=== PATIENT | female | born 2000 | race Caucasian/White ===

== ENCOUNTER 2018-11-06 01:10 | Inpatient (IN) | payer OTHER ==
[~2018-11-06] VITALS: Ht 162.6 cm; Wt 65.5 kg
[2018-11-06 01:45] VITALS: BP 106/61; PULSE 116; RESP 18
[2018-11-06] MEDS ORDERED: PREN-19 PO (01:48)
[2018-11-06] MEDS ORDERED: FERR134T PO (01:48)
[2018-11-06] MEDS ORDERED: LACTATED RINGER'S 1,000 ML IV PRN (04:26)
[2018-11-06] MEDS ORDERED: IBUPROFEN 600 MG TAB PO PRN (04:30)
[2018-11-06] MEDS ORDERED: LIDOCAINE 1% (MPF) 30 ML INJ INJ PRN (04:30)
[2018-11-06] MEDS ORDERED: CARBOPROST 250 MCG INJ IM PRN (04:30)
[2018-11-06] MEDS ORDERED: METHYLERGONOVINE 0.2 MG INJ IM PRN (04:30)
[2018-11-06] MEDS ORDERED: OXYTOCIN 30 UNITS/LR 500 ML IV SCH ×2 (04:30)
[2018-11-06] MEDS ORDERED: OXYTOCIN 30 UNITS/LR 500 ML IV PRN (04:30)
[2018-11-06] MEDS ORDERED: MISOPROSTOL 200 MCG TAB PR PRN (04:30)
[2018-11-06] MEDS ORDERED: BUTORPHANOL 2 MG INJ IV PRN ×2 (04:30)
--- NOTE | 2018-11-06 04:39 | HP ---
Date/Time of Note Date/Time of Note DATE: 11/06/18 TIME: 04:35 OB - History Hx of Present Chief Complaint: vaginal discharge Estimated Due Date: November 05, 2018 : 1 Para: 0 Care: Good Care Past Family/Social History * Past Medical, Surgical, Family and Obstetric Histories reviewed from chart. OB Admission Exam Vital Signs Vital Signs Vital Signs Date Temp Pulse Resp B/P (MAP) Pulse Ox O2 O2 Flow FiO2 Time Delivery Rate 11/06/18 98.0 116 18 106/61 Room Air 01:45 (76) Physical Exam Heart: Rhythm Normal Abdomen: WNL Extremities: Normal Cervical Dilatation: 3cm Effacement: 75% Station: 0 Membranes: Intact Heart Rate: 140's Accelerations: Accelerations Present Contractions on Admission: >10 Minutes Apart OB Assessment/Plan Reason for admission: other (early labor, decrase heart tones variability on initil evaluation IUP 40 07/05) Induction Method: per Pitocin Protocol Other plan: augmentation with pitocin, epidural per patient request CELIA FERRARO MD November 06, 2018 04:39
--- NOTE | 2018-11-06 04:56 | TRIAGE ---
OB Triage Datetime Report Generated by CPN: 11/06/2018 04:55 Datetime: 11/06/2018 02:33 Stage of : OB Triage Datetime: 11/06/2018 02:11 Stage of : OB Triage Labor Evaluation Frequency: 3-10 Monitor Mode: External Quality: Moderate Pattern: Normal: <= 5 Contractions in 10 Minutes Resting Tone Watchtower: Relaxed Heart Rate FHR Baseline Rate: 125 Monitor Mode: External US FHR Baseline Changes: No Baseline Change Variability: Moderate 6-25 bpm Accelerations: 15X15 Decelerations: Late Category: Category II Vaginal Exam Dilatation (cms): 3.0 Effacement (%): 70 Station: -2 Exam By: Sedrick Bolden Amniotic Fluid Amount: Scant Amniotic Fluid Odor: None Vaginal Bleeding: None Cervix, Consistency: Soft Cervix, Position: Posterior Presentation 'A': Cephalic Datetime: 11/06/2018 01:23 Time of Arrival: 11/06/2018 01:00 EGA: 40.1 Arrived By: Ambulatory Arrived From: Home Chief Complaint: c/o irreg ucs, watery discharge, and pressure Movement: Present Contractions: Irregular Time Contractions Began: 11/05/2018 14:00 Contractions: Q5-10 Rupture of Membranes: Denies Vaginal Bleeding: None Vaginal Discharge: Present Recent Sexual Intercouse: Denies Abdominal Trauma: Not Applicable Patient Complaints: Contractions Time Provider Notified: 11/06/2018 02:33 Provider Notified: Dr Ivan Initial Plan: EFM,SVE Datetime: 11/06/2018 01:16 Stage of : OB Triage Maternal Assessment Level of Consciousness: Fully Conscious DTR's/Clonus: DTRs 2+ Headache: Generalized Blurred Vision: No Respiratory Effort: Unlabored Nausea/Vomiting: Denies RUQ Epigastric Pain: Denies Facial Edema: None Monitor Mode: External Resting Tone Watchtower: Relaxed Heart Rate FHR Baseline Rate: 130 Monitor Mode: External US Pain Assessment Pain Scale: 4 Pain Presence: Intermittent Pain Type: Contraction Pain Location: Abdomen
[2018-11-06] MEDS: LACTATED RINGER'S 1,000 ML IV SCH ×4 (05:41→20:59)
--- NOTE | 2018-11-06 17:16 | PREAC ---
Date/Time of Note Date/Time of Note DATE: 11/06/18 TIME: 17:15 Anesthesia Eval and Record Evaluation Time Pre-Procedure Interview DATE: 11/06/18 TIME: 17:15 Age 18 Sex female NPO: 8 hrs Preoperative diagnosis IUP Planned procedure L&D Epidural Past Medical History Past Medical History: Includes GI: Morbid obesity Surgery & Anesthesia Issues No known issue Meds Anticoagulation: No Beta La within 24 hr: No Reason Beta La not given: Pt. not on B-La Reported Medications Vit #76/Iron,Carb/FA (Prenatabs Rx Tablet) 1 Each Tablet, 1 EACH PO DAILY, TAB 11/06/18 Ferrous Sulfate (Iron) 134 Mg Tablet, 134 MG PO DAILY, TAB 11/06/18 Current Medications Lactated Ringer's 1,000 ml @ 125 mls/hr Q8H IV Last administered on 11/06/18at 13:14; Admin Dose 125 MLS/HR; Start 11/06/18 at 04:26 Butorphanol Tartrate (Stadol) 1 mg Q2H PRN IV .PAIN SCALE 1-5; Start 11/06/18 at 04:30 Butorphanol Tartrate (Stadol) 2 mg Q2H PRN IV .PAIN SCALE 6-10; Start 11/06/18 at 04:30 Lidocaine (Xylocaine 1% (Mpf)) 30 ml ONCE PRN INJ .EPISIOTOMY; Start 11/06/18 at 04:30 Oxytocin/Lactated Ringer's 500 ml @ 500 mls/hr ONCE POST IV ; Start 11/06/18 at 04:30 Oxytocin/Lactated Ringer's 500 ml @ 125 mls/hr POST IV ; Start 11/06/18 at 04:30 Ibuprofen (Motrin) 600 mg ONCE PRN PO .PAIN 1-5; Start 11/06/18 at 04:30 Lactated Ringer's 1,000 ml @ 2,000 mls/hr Q30M PRN IV .ANESTHESIA; Start 11/06/18 at 04:26 Oxytocin/Lactated Ringer's 500 ml @ 0 mls/hr ONCE PRN IV .VAGINAL BLEEDING; Start 11/06/18 at 04:30 Methylergonovine Maleate (Methergine) 0.2 mg ONCE PRN IM .VAGINAL BLEEDING; Start 11/06/18 at 04:30 Carboprost Tromethamine (Hemabate) 250 mcg ONCE PRN IM .VAGINAL BLEEDING; Start 11/06/18 at 04:30 Misoprostol (Cytotec) 1,000 mcg ONCE PRN MS .VAGINAL BLEEDING; Start 11/06/18 at 04:30 Oxytocin/Lactated Ringer's 500 ml @ 0 mls/hr FOR AUGMENTATION IV Last administered on 11/06/18at 08:09; Admin Dose 1 MLS/HR; Start 11/06/18 at 04:30 Meds reviewed: Yes Allergies Coded Allergies: No Known Allergy (Unverified , 11/06/18) Allergies Reviewed: Yes Labs/Studies Labs Reviewed: Reviewed by anesthesiologist Result Diagram: 11/06/18 0515 Laboratory Tests 11/06/18 05:15 Blood Bank Test 11/06/18 05:15 Antibody Screen NEGATIVE Blood Type O POSITIVE Rh Immune Globulin Candidate NO test: Positive Studies: ECG Pre-procedure Exam Last vitals Vital Signs Date Temp Pulse Resp B/P (MAP) Pulse Ox O2 O2 Flow FiO2 Time Delivery Rate 11/06/18 98.0 116 18 106/61 Room Air 01:45 (76) Airway: Adequate mouth opening, Adequate thyromental dist Mallampati: Mallampati II Teeth: Normal Lung: Normal Heart: Normal ASA Physical Status ASA physical status: 2 Emergency: None Planned Anesthetic Neuraxial: Epidural Planned Pain Management Epidural, Parenteral pain med Pre-operative Attestations Prior to commencing anesthesia and surgery, the patient was re-evaluated, there was verification of: *The patient's identity *The results of appropriate recent lab work and preoperative vital signs *The above evaluation not changing prior to induction *Anesthetic plan, risk benefits, alternative and complications discussed with patient/family; questions answered; patient/family understands, accepts and wishes to proceed. HUMZA CULP MD November 06, 2018 17:16
[2018-11-06] MEDS ORDERED: ONDANSETRON 4 MG INJ IV PRN (17:30)
[2018-11-06] MEDS ORDERED: DIPHENHYDRAMINE 50 MG INJ IV PRN (17:30)
[2018-11-06] MEDS ORDERED: NALOXONE (0.4 MG/ML) INJ IV PRN (17:30)
[2018-11-06] MEDS ORDERED: FENTAnyl 2MCG/ML-ROPIV 0.2% 100 ML BAG EPI SCH (17:30)
[2018-11-06] MEDS ORDERED: ONDANSETRON 4 MG INJ IV ONE (23:14)
[2018-11-06] MEDS ORDERED: AMPICILLIN 2 GM/NS (PMX) 100 ML ONE (23:22)
[2018-11-06] MEDS ORDERED: AMPICILLIN 2 GM/NS (PMX) 100 ML IVPB SCH (23:30)
[2018-11-06] MEDS ORDERED: CLINDAMYCIN 900 MG/D5W (PMX) 50 ML IVPB ONE (23:43)
[2018-11-07] MEDS ORDERED: CLINDAMYCIN 900 MG/D5W (PMX) 50 ML IVPB SCH
[2018-11-07] MEDS ORDERED: GENTAMICIN 80 MG/NS (PMX) 50 ML IVPB SCH (00:30)
[2018-11-07] MEDS: ACETAMINOPHEN 500 MG TAB PO PRN ×2 (00:36→09:12)
[2018-11-07] MEDS ORDERED: PHENYLephrine 10 MG INJ ONE (01:53)
[2018-11-07] MEDS ORDERED: MISOPROSTOL 200 MCG TAB ONE (02:20)
[2018-11-07] MEDS ORDERED: FENTAnyl 50 MCG/ML VIAL ONE (02:21)
[2018-11-07] MEDS ORDERED: METOCLOPRAMIDE 10 MG INJ ONE (02:41)
[2018-11-07] MEDS ORDERED: MIDAZOLAM 1 MG/ML 2 ML INJ ONE (02:43)
[2018-11-07] MEDS ORDERED: morphine SULFATE/PF (10 MG/10 ML) INJ ONE (03:11)
[2018-11-07] MEDS ORDERED: OXYTOCIN 30 UNITS/LR 500 ML IV SCH (03:15)
[2018-11-07] MEDS ORDERED: LACTATED RINGER'S 1,000 ML IV SCH (03:15)
--- NOTE | 2018-11-07 03:23 | OPPN ---
Date/Time of Note Date/Time of Note DATE: 11/07/18 TIME: 03:20 Operative Report Planned Procedure Procedure date November 07, 2018 Procedure(s) Primary low transverse Performed by see signature line Thread Milling Machine Set Up Operator: COLEEN JERNIGAN MD 2nd Thread Milling Machine Set Up Operator none Pre-procedure diagnosis 1. distress 2. Chorioamnionitis 3. Suspected macrosomia [id number] Anesthesia Type: [id number] epidural Post-Procedure Post-procedure diagnosis 1. distress 2. Chorioamnionitis 3. Suspected macrosomia Findings Live Baby [boy], Apgars [9] and [9], weight [3735 g/8 pounds 4 ounces], [vertex] presentation EBL 800 cc IV fluids 1500 cc Urine output 325 cc Patient received Cytotec 1000 mcg per rectum and Methergine IM x1 dose in the OR Estimated Blood Loss: other (800) Specimen(s) Placenta Grafts/Implant(s) none Complication(s) none ELADIO BENITEZ MD November 07, 2018 03:23
--- NOTE | 2018-11-07 03:25 | PAC ---
Date/Time of Note Date/Time of Note DATE: 11/07/18 TIME: 03:24 Post-Anesthesia Notes Post-Anesthesia Note Last documented vital signs Vital Signs Date Temp Pulse Resp B/P (MAP) Pulse Ox O2 O2 Flow FiO2 Time Delivery Rate 11/07/18 101.7 00:36 11/06/18 116 18 106/61 Room Air 01:45 (76) Activity: WNL Respiratory function: WNL Cardiovascular function: WNL Mental status: Baseline Pain reasonably controlled: Yes Hydration appropriate: Yes Nausea/Vomiting absent: Yes Comments BP:122/56, P:78, Spo2:100%, T:99.8 HUMZA CULP MD November 07, 2018 03:25
[2018-11-07] MEDS ORDERED: LANOLIN HPA 1 PKT TOP PRN (03:30)
[2018-11-07] MEDS ORDERED: MAGNESIUM HYDROXIDE 30ML CUP PO PRN (03:30)
[2018-11-07] MEDS ORDERED: ACETAMINOPHEN 325 MG TAB PO PRN (03:30)
[2018-11-07] MEDS ORDERED: ONDANSETRON 4 MG INJ IV PRN ×2 (03:30)
[2018-11-07] MEDS ORDERED: SENNA/DOCUSATE NA (8.6MG/50MG) TAB PO PRN (03:30)
[2018-11-07] MEDS ORDERED: BISACODYL 10 MG SUPP PR PRN (03:30)
[2018-11-07] MEDS ORDERED: NALOXONE (0.4 MG/ML) INJ IV PRN (03:30)
[2018-11-07] MEDS ORDERED: CARBOPROST 250 MCG INJ IM PRN (03:30)
[2018-11-07] MEDS ORDERED: OXYTOCIN 30 UNITS/LR 500 ML IV PRN (03:30)
[2018-11-07] MEDS ORDERED: CEFAZOLIN 1 GM/50 ML (PMX) 50 ML IVPB SCH (03:30)
[2018-11-07] MEDS ORDERED: IBUPROFEN 600 MG TAB PO PRN (03:30)
[2018-11-07] MEDS ORDERED: MISOPROSTOL 200 MCG TAB PR PRN (03:30)
[2018-11-07] MEDS ORDERED: METHYLERGONOVINE 0.2 MG INJ IM PRN (03:30)
[2018-11-07] MEDS ORDERED: DIPHENHYDRAMINE 50 MG INJ IV PRN (03:30)
[2018-11-07] MEDS ORDERED: morphine 2 MG INJ IV PRN (03:30)
[2018-11-07] MEDS ORDERED: ACETAMINOPHEN 1000MG/100ML IV 100 ML IVPB ONE (04:30)
[2018-11-07] MEDS: KETOROLAC 30 MG INJ IV PRN ×3 (05:15→20:38)
[2018-11-07] MEDS: OXYTOCIN 30 UNITS/LR 500 ML IV SCH ×2 (05:52→23:35)
[2018-11-07] MEDS ORDERED: PIPER-TAZO 3.375 GM IV (PMX) 100 ML IVPB SCH (06:00)
[2018-11-07 06:20] VITALS: BP 108/53; PULSE 94; RESP 20
[2018-11-07 06:50] VITALS: BP 103/56; PULSE 83; RESP 18
[2018-11-07] MEDS ORDERED: OXYTOCIN 30 UNITS/LR 500 ML BAG IV ONE (07:00)
[2018-11-07] MEDS ORDERED: LIDOCAINE 1.5%/EPI MPF (SDV) 30 ML VIAL ONE (07:00)
[2018-11-07 08:00] VITALS: BP 102/59; PULSE 82; RESP 18
--- NOTE | 2018-11-07 11:03 | OPR ---
Operative Report Planned Procedure Procedure date November 07, 2018 Procedure(s) Primary low transverse section Performed by see signature line Wound/Ostomy Nurse: COLEEN JERNIGAN MD Pre-procedure diagnosis 1. distress 2. Chorioamnionitis 3. Suspected macrosomia [id number] Anesthesia Type: [id number] epidural Post-Procedure Post-procedure diagnosis 1. distress 2. Chorioamnionitis 3. Suspected macrosomia Findings Live Baby [boy], Apgars [9] and [9], weight [3735 g/8 pounds 4 ounces], [vertex] presentation EBL 800 cc IV fluids 1500 cc Urine output 325 cc Patient received Cytotec 1000 mcg per rectum and Methergine IM x1 dose in the OR Estimated Blood Loss: other (800) Specimen(s) Placenta Grafts/Implant(s) none Complication(s) none Pt Condition post procedure: stable Disposition: PACU Procedure Description Patient was taken to the operating room after adequate amount of anesthesia was given patient was prepped and draped in normal sterile fashion Low transverse Pfannenstiel skin incision was made. Incision was carried through to the underlying layer of fascia using Bovie Fascia was incised in the midline and incision was extended bilaterally using Bovie Both anterior and posterior edge of the fascia were from underlying layer of rectus muscles Rectus muscles were in the midline and peritoneum was identified and entered sharply without any difficulty Peritoneum was extended bilaterally manually. An Reji retractor was placed A bladder flap was created. Then a low transverse uterine incision was made on the uterus Fetus was delivered from vertex presentation and after 30 seconds delayed cord clamping the fetus was handed immediately to the waiting ICU team Placenta was delivered manually intact. Uterus was cleared off of all clots and debris Uterine incision was closed with 1 Vicryl suture in both running locked and a second layer imbricating fashion Multiple irrigations were performed and excellent hemostasis was noted. Both adnexa appeared normal Surgicel was placed on the incision line. Reji retractor was removed Peritoneal closure proceeded with 2-0 Vicryl in a running fashion. Rectus muscles were reapproximated with 2-0 Vicryl Fascia was closed with 0 Vicryl suture in 2 separate segments in a running fashion Subcutaneous layer was closed with 0- plain suture in a continuous fashion Skin was closed with end-sorb anuj and Dermabond glue All sponge, lap, needle counts were reported to be correct Patient tolerated the procedure well and taken back to recovery room in a stable condition ELADIO BENITEZ MD November 07, 2018 11:03
[2018-11-07] MEDS: PIPER-TAZO 3.375 GM IV (PMX) 100 ML IVPB SCH ×2 (11:54→17:41)
[2018-11-07 11:58] VITALS: BP 115/68; PULSE 79; RESP 18
[2018-11-07 16:24] VITALS: BP 94/59; PULSE 69; RESP 18
[2018-11-07 20:00] VITALS: BP 91/40; PULSE 74; RESP 18
[2018-11-08] VITALS: BP 97/46; PULSE 76; RESP 20
[2018-11-08] MEDS ORDERED: OXYCODONE/ACETAMINOPHEN (5/325) TAB PO PRN (01:35)
[2018-11-08 04:00] VITALS: BP 111/56; PULSE 84; RESP 18
[2018-11-08] MEDS: OXYCODONE/ACETAMINOPHEN (5/325) TAB PO PRN ×3 (04:31→21:41)
[2018-11-08] MEDS: PIPER-TAZO 3.375 GM IV (PMX) 100 ML IVPB SCH ×4 (07:22→17:45)
[2018-11-08 08:00] VITALS: BP 100/55; PULSE 87; RESP 18
[2018-11-08] MEDS: IBUPROFEN 600 MG TAB PO PRN (10:32)
[2018-11-08] MEDS: FERROUS SULFATE (EC) 325 MG TAB PO SCH ×2 (12:36→21:41)
[2018-11-08 16:00] VITALS: BP 98/52; PULSE 86; RESP 18
--- NOTE | 2018-11-08 16:17 | QN ---
Documentation Comment Postop day #1 Status post primary Patient stable and afebrile Vital signs stable VS - Last 72 Hours, by Label Date Temp Pulse Resp B/P (MAP) Pulse Ox O2 O2 Flow FiO2 Time Delivery Rate 11/08/18 98.5 87 18 100/55 Room Air 08:00 (70) 11/08/18 99.0 84 18 111/56 Room Air 04:00 (74) 11/08/18 98.4 76 20 97/46 (63) 96 Room Air 00:00 11/07/18 98.3 74 18 91/40 (57) 97 Room Air 20:00 11/07/18 98.5 69 18 94/59 (71) Room Air 16:24 11/07/18 98.5 79 18 115/68 99 Room Air 11:58 (84) 11/07/18 98.5 09:57 11/07/18 100.3 09:12 11/07/18 100.1 82 18 102/59 Room Air 08:00 (73) 11/07/18 102.0 83 18 103/56 96 Room Air 06:50 (72) 11/07/18 102.2 94 20 108/53 96 Room Air 06:20 (71) 11/07/18 103.3 04:34 11/07/18 101.7 00:36 11/06/18 98.0 116 18 106/61 Room Air 01:45 (76) Hematology - 72 Hrs Test 11/06/18 05:15 11/08/18 07:09 Hematocrit 26.8 % (37.0-47.0) L 20.3 % (37.0-47.0) #L Hemoglobin 8.4 g/dl (12.0-16.0) L 6.3 g/dl (12.0-16.0) Mean Corpuscular 21.2 pg (29.0-33.0) L 20.7 pg (29.0-33.0) L Hemoglobin Mean Corpuscular 31.3 g/dl (32.0-37.0) L 31.0 g/dl (32.0-37.0) L Hemoglobin Concent Mean Corpuscular Volume 67.5 fl (72.0-104.0) L 66.6 fl (72.0-104.0) L Mean Platelet Volume 10.8 fl (7.4-10.4) H 11.2 fl (7.4-10.4) H Platelet Count 253 10^3/UL (140-415) 226 10^3/UL (140-415) Red Blood Count 3.97 10^6/ul (4.20-5.40) 3.05 10^6/ul (4.20-5.40) L #L Red Cell Distribution 16.1 % (11.5-14.5) H 16.9 % (11.5-14.5) H Width White Blood Count 10.1 10^3/ul (4.8-10.8) 23.8 10^3/ul (4.8-10.8) #H Monocytes # (Manual) 0.4 10^3/ul (0.3-0.9) Chemistry Test 11/08/18 07:09 Sodium Level 134 mmol/L (135-144) L Potassium Level 3.8 mmol/L (3.5-5.1) Chloride Level 106 mmol/L (97-110) Carbon Dioxide Level 25 mmol/L (21-31) Anion Gap 3 (5-13) L Blood Urea Nitrogen 8 mg/dl (7-20) Creatinine 0.58 mg/dl (0.44-1.00) Est Glomerular Filtrat Rate mL/min > 60 mL/min (>60) Glucose Level 109 mg/dl (70-220) Calcium Level 8.3 mg/dl (8.4-10.2) L Total Bilirubin 0.3 mg/dl (0.2-1.3) Direct Bilirubin 0.00 mg/dl (0.00-0.20) Indirect Bilirubin 0.3 mg/dl (0-1.1) Aspartate Amino Transf (AST/SGOT) 194 IU/L (15-46) H Alanine Aminotransferase (ALT/SGPT) 64 IU/L (13-69) Alkaline Phosphatase 203 IU/L (42-121) H Total Protein 5.0 g/dl (6.1-8.1) L Albumin 2.2 g/dl (3.3-4.9) L Globulin 2.80 g/dl (1.3-3.2) Albumin/Globulin Ratio 0.78 Abdomen soft, fundus firm Incision clean,dry,intact Extremities nontender Assessment and plan Patient stable and doing well Encouraged to ambulate Repeat CBC in a.m. Continue with routine postop care ELADIO BENITEZ MD November 08, 2018 16:17
--- NOTE | 2018-11-08 18:50 | QN ---
Documentation Comment s/p c/s Subjective: no complaint Objective: Afebrile, VSS NAD A&O Abdomen: soft, appropriate tender Incision: no sign of bleeding/infection mild lochia Extremity: 1+ edema bilaterally Assessment: S/p C/S pod # 2. Chorioamnionitis Recovering Well Plan: current care with IV Abx YUNIER KAUR MD November 08, 2018 18:50
[2018-11-08 20:00] VITALS: BP 98/54; PULSE 88; RESP 18
[2018-11-09] MEDS: PIPER-TAZO 3.375 GM IV (PMX) 100 ML IVPB SCH ×5 (01:09→23:42)
[2018-11-09 04:00] VITALS: BP 108/60; PULSE 92; RESP 20
[2018-11-09] MEDS: OXYCODONE/ACETAMINOPHEN (5/325) TAB PO PRN ×2 (06:05→13:53)
--- NOTE | 2018-11-09 07:40 | DS ---
Date/Time of Note Date/Time of Note DATE: 11/09/18 TIME: 07:37 Obstetrical Discharge Record Final Diagnosis Final Diagnosis: Term delivered Other Final Diagnosis she is s/p c/s. was anemic prior to c/s and more anemic now. denies anemia symptoms. Fe TID d/w pt. had chorioamnionitis, but afebrile > 48 hours. was treated with Zosyn. + BM. ambulating well. good pain control on oral pain meds. Section Section: Primary Complications Augmentation: Yes Induction: Yes Rupture of Membranes: No Condition on Discharge Physical Assessment Voiding: Yes Bowel Movement: Yes Breast: Soft, non-tender, Filling Fundus: Firm Abdomen and Incision: soft, appropriate tender. no sign of infection on incision Calf Tenderness: No Patient Condition: Good YUNIER KAUR MD November 09, 2018 07:40
[2018-11-09 07:55] VITALS: BP 98/58; PULSE 95; RESP 17
[2018-11-09] MEDS: FERROUS SULFATE (EC) 325 MG TAB PO SCH ×3 (09:03→20:25)
[2018-11-09] MEDS: IBUPROFEN 600 MG TAB PO PRN ×3 (12:25→23:42)
[2018-11-09 16:45] VITALS: BP 102/49; PULSE 76; RESP 18
[2018-11-09 20:35] VITALS: BP 106/58; PULSE 82; RESP 18
[2018-11-10] MEDS: OXYCODONE/ACETAMINOPHEN (5/325) TAB PO PRN (01:24)
[2018-11-10 03:48] VITALS: BP 102/56
[2018-11-10] MEDS: PIPER-TAZO 3.375 GM IV (PMX) 100 ML IVPB SCH ×2 (06:17→12:18)
[2018-11-10] MEDS: IBUPROFEN 600 MG TAB PO PRN ×2 (06:27→12:18)
[2018-11-10 08:30] VITALS: BP 118/74; PULSE 71; RESP 16
[2018-11-10] MEDS: FERROUS SULFATE (EC) 325 MG TAB PO SCH ×3 (09:35→12:18)
--- NOTE | 2018-11-11 16:11 | DELSUM ---
Delivery Summary A-C Datetime Report Generated by CPN: 11/11/2018 16:11 DELIVERY PERSONNEL Polishing Pad Mounter: Dries, Immanuel MATERNAL INFORMATION Delivery Anesthesia: Epidural Medications in Delivery: LR WITH 30 UNITS PITOCIN Delivery QBL (ml): 800 Placenta Cultured: Yes Maternal Complications: Chorioamnionitis; Maternal Fever LABOR SUMMARY EDC: 11/05/2018 00:00 No. Babies in Womb: 1 Attempted: No Labor Anesthesia: Epidural LABOR INFORMATION Reason for Induction: Not Applicable Onset of Labor: 11/05/2018 11:00 Complete Dilatation: 11/06/2018 23:50 Oxytocin: Augmentation Group B Beta Strep: Negative Antibiotics # of Doses: 3 Antibiotics Time of Last Dose: 11/07/2018 00:33 Steroids Given: None Reason Steroids Not Administered: Not Applicable MEMBRANES Membranes Rupture Method: Artificial Rupture of Membranes: 11/06/2018 20:44 Length of Rupture (hr): 5.53 Amniotic Fluid Color: Clear Amniotic Fluid Amount: Moderate Amniotic Fluid Odor: None STAGES OF LABOR Stage 1 hr: 36 Stage 1 min: 50 Stage 2 hr: 2 Stage 2 min: 26 Stage 3 hr: 0 Stage 3 min: 1 Total Time in Labor hr: 39 Total Time in Labor min: 17 CSECTION DELIVERY Primary Indication: Nonreassuring Stat Secondary Indication: Other Other Secondary Indication: MATERNAL FEVER CSection Urgency: Non Elective CSection Incidence: Primary Labor: Labor Elective: Nonelective CSection Incision: Lower Uterine Transverse BABY A INFORMATION Infant Delivery Date/Time: 11/07/2018 02:16 Method of Delivery: Born in Route : No : N/A Forceps: N/A Vacuum Extraction: N/A Shoulder Dystocia : N/A SHOULDER DYSTOCIA BABY A Infant Delivery Date/Time: 11/07/2018 02:16 PRESENTATION/POSITION BABY A Presentation: Cephalic Cephalic Presentation: Vertex Vertex Position: Left Occipital Posterior Breech Presentation: N/A PLACENTA INFORMATION BABY A Placenta Delivery Time : 11/07/2018 02:17 Placenta Method of Delivery: Manual Removal Placenta Status: Delivered SCORES BABY A Heart Rate 1 min: >100 bpm Resp Effort 1 min: Good Cry Reflex Irritability 1 min: Cough/Sneeze/Pulls Away Muscle Tone 1 min: Active Motion Color 1 min: Body [place], Extremit Blue Resuscitation Effort 1 min: Tactile Stimulation SCORE 1 MIN: 9 Heart Rate 5 min: >100 bpm Resp Effort 5 min: Good Cry Reflex Irritability 5 min: Cough/Sneeze/Pulls Away Muscle Tone 5 min: Active Motion Color 5 min: Body [place], Extremit Blue Resuscitation Effort 5 min: Tactile Stimulation SCORE 5 MIN: 9 INFORMATION BABY A Gestational Age at Delivery: 40.2 Gestational Status: Full Term- 39- 40.6 Weeks Outcome : Liveborn Infant Condition : Stable Infant Sex: Male IDENTIFICATION/MEDS BABY A ID Band Number: [id number] ID Band Location: Right Leg; Left Arm Sensor Applied: Yes Sensor Number: [id number] Sensor Location : Cord Clamp Vitamin K Given : Not Given Erythromycin Given: Not Given WEIGHT/LENGTH BABY A Infant Birthweight (gm): 3735 Infant Weight (lb): 8 Weight (oz): 4 Infant Length (in): 21.00 Infant Length (cm): 53.34 CORD INFORMATION BABY A No. Cord Vessels: 3 Nuchal Cord : N/A True Knot: 0 Cord Blood Taken: Yes Suction: Mouth; Nose ASSESSMENT BABY A Infant Complications: Extended Tachycardi; Multiple Variable Decels Physical Findings at Delivery: Within Normal Limits Respirations: Appears Normal Poultry Boner/ALS Called : No Care By: Sedrick Bolden Transferred To: [facility]
== END 2018-11-10 16:00 | disposition home or self-care (01) | DRG 786 ==
LOC: OBT 01:10 → L-D 01:11 → OBT 04:20 → L-D 11-07 01:44 → PP1 11-07 06:03
PROVIDERS: ADMIT Specialist; ATTEND Specialist
PROC: 10D00Z1 Extraction of Products of Conception, Low, Open Approach (ICD-10-PCS; principal; 2018-11-07 02:00)
DX: O76 Abnormality in fetal heart rate and rhythm complicating labor and delivery (principal); O41.1230 Chorioamnionitis, third trimester, not applicable or unspecified; D64.9 Anemia, unspecified; O99.02 Anemia complicating childbirth; Z3A.40 40 weeks gestation of pregnancy; Z37.0 Single live birth
CPT/HCPCS: 62322; 76815; 80053; 84112; 85025; 85610; 85730; 86592; 86850; 86900; 86901; 87070; 87086; 88307; 99464; G0463; J0131; J0290; J1580; J1885; J2210; J2250; J2274; J2405; J2543; J2590; J2765; J3010; J7120